=== PATIENT | male | born 1955 | race Caucasian/White ===

== ENCOUNTER → 2017-10-13 | Outpatient (CLI) | payer SELFPAY ==
[~2017-10-13] MED LIST: ASPIRIN 81M81 MG/TA2 PO; COLACE 100100 MG/CAP PO; HCTZ 25MG TAB25 MG PO; HYDROCODON-ACETAMINO; NORCO 325 MG-51 TAB PO; PYRIDIUM200 M1 PO; TENORMIN 2525 MG/TAB PO
[2017-10-13 16:46] LABS: HIV 1/2 Antibodies Non-Reactive; HIV-1p24 Antigen Non-Reactive
== END ==
LOC: COL.LAB 15:33
PROVIDERS: Orthopaedic Surgery
DX: Z01.812 Encounter for preprocedural laboratory examination (principal); M17.12 Unilateral primary osteoarthritis, left knee